=== PATIENT | male | born 1930 | race Caucasian/White ===

== ENCOUNTER 2017-06-18 11:02 | Outpatient (CLI) | payer MEDICARE, BC ==
--- NOTE | 2017-06-18 15:08 | RAD ---
RADIOGRAPH CHEST 2 VIEWS: HISTORY: An 87-year-old male with acute dyspnea. FINDINGS: The thoracic aorta is tortuous and ectatic. There is no evidence of air space density, pneumothorax , or pulmonary edema. There is no cardiomegaly or pleural effusion. There is a tiny, less than 1 c m, somewhat ill-defined focal nodular density projecting over the right upper lobe. It is uncertain whether this is a true pulmonary nodule or artifact due to confluence of anterior and posterior rib s plus scapula. IMPRESSION: 1) No acute cardiopulmonary findings. 2) Ectasia of thoracic aorta. 3) Questionable small right upper lobe pulmonary nodule versus artifact. Recommend repeat frontal v iew chest radiograph. chris Perez POS: [facility]
== END 2017-06-18 11:03 | disposition home or self-care (01) ==
LOC: MADRAD 11:02
PROVIDERS: ATTEND Obstetrics & Gynecology
DX: Z00.00 Encounter for general adult medical examination without abnormal findings (principal); R06.02 Shortness of breath; I77.810 Thoracic aortic ectasia
CPT/HCPCS: 71020